=== PATIENT | male | born 1960 | race Caucasian/White ===

== ENCOUNTER 2020-02-06 07:37 | Day surgery (SDC) | payer MEDICARE, MEDICAID ==
[2020-01-31 13:19] LABS: BASOPHILS # (AUTO) 0.1 X10'3 (0-0.2); BASOPHILS % (AUTO) 0.8 % (0-1); EOSINOPHILS # (AUTO) 0.1 X10'3 (0-0.9); EOSINOPHILS % (AUTO) 0.9 % (0-6); LYMPHOCYTES # (AUTO) 1.4 X10'3 (1.1-4.8); LYMPHOCYTES % (AUTO) 9.6 % (21-51); MEAN CORPUSCULAR HEMOGLOBIN 28.2 PG (27.0-31.0); MEAN CORPUSCULAR HGB CONC 33.3 g/dL (33.0-36.5); MEAN CORPUSCULAR VOLUME 84.6 FL (78-98); MEAN PLATELET VOLUME 8.3 FL (7.4-10.4); MONOCYTES # (AUTO) 0.9 X10'3 (0-0.9); NEUTROPHILS # (AUTO) 12.1 X10'3 (1.8-7.7); NEUTROPHILS % (AUTO) 82.7 % (42-75); PRE OP HEMATOCRIT 47.7 % (42.0-52.0); PRE OP HEMOGLOBIN 15.9 g/dL (14.0-17.9); PRE OP PLATELET COUNT 239 X10'3 (140-440); RED BLOOD COUNT 5.64 X10'6 (4.70-6.10)
[2020-01-31 13:23] LABS: COLOR,URINE YELLOW (Yellow); GLUCOSE, URINE NEGATIVE (Neg); KETONES,URINE NEGATIVE (Neg); LEUKOCYTE ESTERASE ,URINE MODERATE (Neg); NITRITES, URINE NEGATIVE (Neg); OCCULT BLOOD,URINE MODERATE (Neg); PH,URINE 5.5 (4.8-8.0); PROTEIN,URINE 30 mg/dl (Neg); UROBILINOGEN,URINE 0.2 E.U/dL (0.2-1.0)
[2020-01-31 13:25] LABS: CLARITY,URINE Cloudy (Clear); UA COLLECTION TYPE NON-SPECIFIED
[2020-01-31 13:33] LABS: ALBUMIN 3.5 G/DL (3.4-5.0); ALBUMIN/GLOBULIN RATIO 0.8 (1.1-1.5); ALKALINE PHOSPHATASE 113 IU/L (46-116); BLOOD UREA NITROGEN 16 MG/DL (7-18); BUN/CREATININE RATIO 11.8 (5.4-32.0); CHLORIDE 104 MMOL/L (99-107); CREATININE 1.36 MG/DL (0.60-1.10); PRE OP ALT 34 U/L (30-65); PRE OP ANION GAP 8 (8-16); PRE OP AST 21 U/L (10-37); PRE OP GLUCOSE 110 MG/DL (70-104); PRE OP POTASSIUM 4.5 MMOL/L (3.4-5.1); PRE OP SODIUM 139 MMOL/L (135-145); TOTAL CARBON DIOXIDE 26.8 MMOL/L (24-32); TOTAL PROTEIN 8.1 G/DL (6.4-8.2); eGFR 54 ML/MIN
[2020-01-31 13:37] LABS: SQUAMOUS EPITHELIAL CELL,UR FEW /LPF (FEW)
[2020-01-31 13:40] LABS: WBC,URINE 50-100 /HPF (0-4)
[2020-01-31 13:41] LABS: BACTERIA,URINE 1+ /HPF (Neg); WBC CLUMPS,URINE FEW /HPF (NEGATIVE)
[2020-01-31 13:42] LABS: TRANSITIONAL EPI CELLS,URINE FEW /HPF
[2020-01-31 13:45] LABS: COARSE GRANULAR CAST 0-3 /LPF (NEGATIVE)
[~2020-02-06] VITALS: Ht 152.4 cm; Wt 91.0 kg
[2020-02-06] VITALS (14 sets, daily range): BP systolic 100–133; BP diastolic 56–86
[~2020-02-06 07:37] MED LIST: NO HOME MEDS; ceFAZolin 2gm in dextrose, iso 50 ML IV ONE; famotidine 20mg tablet PO ONE; ringers solution, lacted 1,000 ML IV SCH
[2020-02-06] MEDS ORDERED: levoFLOXACIN-Levaquin 500mg/D5 100 ML IV ONE (09:00)
[2020-02-06] MEDS ORDERED: albuterol 2.5 MG/3 ML nebule NEB ONE (09:00)
[2020-02-06] MEDS ORDERED: fentaNYL /PF 50mcg/ml 5ml ampule ONE (10:49)
[2020-02-06] MEDS ORDERED: midazolam 2 mg/2 ml injection ONE (10:49)
[2020-02-06] MEDS ORDERED: rocuronium 10mg/ml inj IV ONE ×2 (10:50→11:50)
[2020-02-06] MEDS ORDERED: propofol inj 20 ML IV ONE (10:50)
[2020-02-06] MEDS ORDERED: LIDOcaine 2% (20mg/ml) 5ml vial ONE (10:50)
[2020-02-06] MEDS ORDERED: BUPIVAcaine/PF 2.5mg/ml (0.25%) 10ml vial ONE (10:56)
[2020-02-06] MEDS ORDERED: BUPIVACAINE liposomal/PF 13.3 MG/ML vial IM ONE (10:56)
[2020-02-06] MEDS ORDERED: ceFAZolin 1000mg inj ONE (10:57)
[2020-02-06] MEDS ORDERED: sevoflurane 250ml liquid IH ONE (11:50)
[2020-02-06] MEDS ORDERED: ringers solution, lacted 1,000 ML IV SCH (13:00)
[2020-02-06] MEDS ORDERED: ondansetron/PF 4mg/2ml inj IV PRN (13:00)
[2020-02-06] MEDS ORDERED: morphine 2 MG/ML inj. syringe IV PRN (13:00)
[2020-02-06] MEDS ORDERED: meperidine/PF 25mg/ml syringe IV PRN ×3 (13:00)
[2020-02-06] MEDS ORDERED: morphine 4 MG/ML inj SYRINge IV PRN (13:00)
[2020-02-06] MEDS ORDERED: proCHLORperazine 10 MG/2 ml inj IV PRN (13:00)
[2020-02-06] MEDS ORDERED: acetaminophen 1,000mg/100ml IV 100 ML IV ONE (13:06)
[2020-02-06] MEDS ORDERED: dexamethasone sod phosphate 4mg/ml inj. ONE (13:06)
[2020-02-06] MEDS ORDERED: glycopyrrolate 0.2mg/ml inj ONE (13:06)
[2020-02-06] MEDS ORDERED: neostigmine methylsulfate 1 MG/ML 10ml vial ONE (13:06)
[2020-02-06] MEDS ORDERED: ondansetron/PF 4mg/2ml inj ONE (13:06)
[2020-02-06] MEDS ORDERED: BUPIVAcaine/PF 2.5 mg/ml (0.25%) 30ml vial ONE (13:43)
[2020-02-06] MEDS ORDERED: meperidine/PF 25mg/ml syringe ONE (13:45)
--- NOTE | 2020-02-06 13:55 | NUR ---
Received from OR via [facility], accompanied by Anesthesiologist DR HANEY and report given by Anesthesiologist. PT KONSTANTINSY, DENIES PAIN, ABOJUNEN W/SEVERAL LAP SITES W/DERMABOND CDI, 2 LAP SITES W/BANDAIDS CDI. Addendum: 02/06/20 at 1452 by Iliana Hatch RN Amended: Links added.
[2020-02-06] MEDS ORDERED: HYDROcodone/acetaminophen 10/325mg tab PO ONE (15:35)
--- NOTE | 2020-02-06 16:25 | NUR ---
PT AMBULATED UP AND AD KEILA WHILE WAITING FOR HIS RIDE HOME, WAS STEADY ON FEET, INSTRUCTED HIM IF HE IS UNABLE TO VOID BY TONIGHT THAT HE NEEDS TO COME BACK TO THE ED FOR RIVERA CATHETER PLACEMENT, HE VERBALIZED UNDERSTANDING, D/C INSTRUCTIONS GIVEN AND GONE OVER W/PT WHO VERBALIZED UNDERSTANDING, PT D/CD TO HOME VIA W/C TO PRIVATE VEHICLE W/O INCIDENT. Addendum: 02/06/20 at 1643 by Iliana Hatch RN Amended: Links added.
== END 2020-02-06 16:25 | disposition home or self-care (01) ==
LOC: PAS 07:37
PROVIDERS: ATTEND Surgery
PROC: 0WUF4JZ Supplement Abdominal Wall with Synthetic Substitute, Percutaneous Endoscopic Approach (ICD-10-PCS; principal; 2020-02-06 11:50)
DX: K43.2 Incisional hernia without obstruction or gangrene (principal); M10.9 Gout, unspecified; Z11.59 Encounter for screening for other viral diseases; Z79.899 Other long term (current) drug therapy; R10.9 Unspecified abdominal pain; F17.210 Nicotine dependence, cigarettes, uncomplicated
CPT/HCPCS: 36415; 49654; 80053; 81001; 82948; 85025; 87077; 87088; 87186; 93005; 94640; C1758; C1781; C9290; J0131; J0690; J1100; J1956; J2001; J2175; J2250; J2405; J2704; J2710; J3010; J3490; J7120; U0003; A4215; A4618; A7000